=== PATIENT | female | born 1995 | race Hispanic/Latino ===

== ENCOUNTER 2018-06-10 13:04 | Emergency (ER) | payer SELFPAY ==
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
[2018-06-10] MEDS ORDERED: KETOROLAC 30 MG/ML INJ ONE (15:38)
[2018-06-10] MEDS ORDERED: CYCLOBENZAPRINE 10 MG TAB ONE (15:38)
[2018-06-10 16:04] LABS: Urine Blood TRACE (NEG); Urine Glucose NEGATIVE (NEG); Urine Protein NEGATIVE (NEG); Urine pH 7.5 (5.0-7.0)
[2018-06-10 16:04] LABS: Urine Bacteria <20 /HPF (<20); Urine Culture Reflex Order NOT NEEDED; Urine Mucus 1+ /HPF (NONE SEEN); Urine RBC <5 /HPF (NONE SEEN)
== END 2018-06-10 16:08 | disposition home or self-care (01) ==
LOC: ER 13:04
DX: M54.5 Low back pain (principal); V47.5XXA Car driver injured in collision with fixed or stationary object in traffic accident, initial encounter
CPT/HCPCS: 81003; 81015; 81025; 96372; 99283